=== PATIENT | female | born 1935 | race Caucasian/White ===

== ENCOUNTER 2021-11-16 05:35 | Inpatient (IN) ==
[2021-11-16] MEDS ORDERED: VANCOMYCIN INJ 1,000 MG in SODIUM CHLORIDE 0.9% 250 ML IV ONE (06:30)
[2021-11-16] MEDS ORDERED: ROPIVACAINE 0.5% 30 ML VIAL ONE (07:57)
[2021-11-16] MEDS ORDERED: LIDOCAINE 1% 5 ML VIAL ONE (07:57)
[2021-11-16] MEDS ORDERED: DEXAMETHASONE 4 MG/1 ML VIAL ONE (07:57)
[2021-11-16] MEDS ORDERED: DEXMEDETOMIDINE 200 MCG/2 ML VIAL ONE (07:58)
[2021-11-16] MEDS ORDERED: MIDAZOLAM 2 MG/2 ML VIAL ONE ×2 (07:58→08:03)
[2021-11-16] MEDS ORDERED: LIDOCAINE 2% 5 ML VIAL ONE (08:03)
[2021-11-16] MEDS ORDERED: ONDANSETRON 4 MG/2 ML VIAL ONE (08:03)
[2021-11-16] MEDS ORDERED: propofoL 200 MG/20 ML VIAL IV ONE (08:03)
[2021-11-16] MEDS ORDERED: fentaNYL 100 MCG/2 ML VIAL ONE (08:04)
[2021-11-16] MEDS ORDERED: KETAMINE 500 MG/10 ML VIAL ONE (08:04)
[2021-11-16] MEDS ORDERED: BUPIVACAINE SPINAL 0.75% 2 ML AMP SPINAL ONE (08:08)
[2021-11-16] MEDS ORDERED: buprenorphine HCL 0.3 MG/ML VIAL ONE (08:15)
[2021-11-16] MEDS: LACTATED RINGERS 1,000 ML IV SCH ×2 (08:19→10:54)
[2021-11-16] MEDS ORDERED: GLYCOPYRROLATE 0.4 MG/2 ML VIAL ONE (08:21)
[2021-11-16] MEDS ORDERED: PHENYLEPHRINE 1 MG/10 ML SYRINGE IV ONE ×2 (08:21→10:26)
[2021-11-16] MEDS ORDERED: BACITRACIN OINT 0.9 GM PACK TOP ONE (09:01)
[2021-11-16] MEDS ORDERED: PROMETHAZINE 25 MG/1 ML VIAL IM PRN (10:38)
[2021-11-16] MEDS ORDERED: LACTULOSE 20 GM/30 ML UDCUP PO PRN (10:38)
[2021-11-16] MEDS ORDERED: BISACODYL 10 MG SUPP RECTAL PRN (10:38)
[2021-11-16] MEDS ORDERED: TEMAZEPAM 7.5 MG CAPSULE PO PRN (10:38)
[2021-11-16] MEDS ORDERED: MAGNESIUM HYDROXIDE SUSP 30 ML UDCUP PO PRN (10:38)
[2021-11-16] MEDS ORDERED: diphenhydrAMINE CAP 25 MG CAPSULE PO PRN (10:38)
[2021-11-16] MEDS ORDERED: ONDANSETRON 4 MG/2 ML VIAL IV PRN (10:38)
[2021-11-16] MEDS ORDERED: CLORAZEPATE 3.75 MG TABLET PO PRN (10:43)
[2021-11-16] MEDS ORDERED: ePHEDrine 50 MG/ML VIAL IV PRN (12:14)
[2021-11-16] MEDS ORDERED: ePHEDrine 50 MG/ML VIAL ONE (12:14)
[2021-11-16] MEDS: SUCRALFATE 1 GM TABLET PO SCH ×3 (16:52→21:35)
[2021-11-16] MEDS: LEVOTHYROXINE 112 MCG TABLET PO SCH (16:52)
[2021-11-16] MEDS: LEVOTHYROXINE 125 MCG TABLET PO SCH (16:52)
[2021-11-16] MEDS: DICLOFENAC 1% GEL 100 GM TUBE TOP SCH ×2 (18:06→21:37)
[2021-11-16] MEDS: MORPHINE 2 MG/1 ML SYRINGE IV PRN (21:35)
[2021-11-16] MEDS: FONDAPARINUX 2.5 MG/0.5 ML SYRINGE SUBCUT SCH (21:35)
[2021-11-16] MEDS: DOCUSATE SODIUM 100 MG CAPSULE PO SCH (21:35)
[2021-11-16] MEDS: MULTIVITAMIN (OCUVITE) TABLET PO SCH (21:35)
[2021-11-17 05:45] LABS: Basophils % 0.2 % (0.0-0.8); Eosinophils % 0.2 % (0.00-10.9); Hematocrit 31.9 VOL% (35.7-47.0); Hemoglobin 10.7 GM/DL (12.0-16.0); Immature Granulocytes % 0.3 %; Immature Granulocytes Absolute 0.02 #; Lymphocytes # 0.7 10*3/uL (1.4-4.0); Lymphocytes % 12.5 % (21.3-54.2); Mean Corpuscular HGB Conc 33.5 GM/DL (32-36); Mean Corpuscular Volume 94.4 FL (87-102); Mean Platelet Volume 9.4 FL (9.6-12.0); Monocytes % 13.5 % (1.7-12.7); Neutrophils % 73.3 % (38.7-73.9); Platelet Count 107 T/CUMM (130-400); Red Blood Count 3.38 MC/CUMM (3.8-5.5); Red Cell Distribution Width 18.1 % (9.3-17.3); White Blood Count 5.8 T/CUMM (4-12)
[2021-11-17] MEDS: LEVOTHYROXINE 125 MCG TABLET PO SCH (05:49)
[2021-11-17 05:56] LABS: Calcium 8.7 MG/DL (8.5-10.1); Osmolality,Calculated 271.1 MOS/KG (273-304); Potassium 4.5 MMOL/L (3.5-5.1)
[2021-11-17] MEDS: SUCRALFATE 1 GM TABLET PO SCH ×4 (08:41→20:07)
[2021-11-17] MEDS: FERROUS SULFATE 325 MG TABLET PO SCH (08:42)
[2021-11-17] MEDS: hydroCHLOROthiazide 12.5 MG CAPSULE PO SCH (08:42)
[2021-11-17] MEDS: atenoloL 50 MG TABLET PO SCH (08:42)
[2021-11-17] MEDS: MAGNESIUM OXIDE 400 MG TABLET PO SCH (08:42)
[2021-11-17] MEDS: ASPIRIN EC 81 MG TABLET PO SCH (08:42)
[2021-11-17] MEDS: PANTOPRAZOLE 40 MG TABLET PO SCH (08:42)
[2021-11-17] MEDS: MULTIVITAMIN (OCUVITE) TABLET PO SCH ×2 (08:42→20:07)
[2021-11-17] MEDS: MULTIVITAMIN (CENTRUM) TABLET PO SCH (08:42)
[2021-11-17] MEDS: lisinopriL 20 MG TABLET PO SCH (08:43)
[2021-11-17] MEDS: DOCUSATE SODIUM 100 MG CAPSULE PO SCH ×2 (08:43→20:07)
[2021-11-17] MEDS: DICLOFENAC 1% GEL 100 GM TUBE TOP SCH ×4 (09:31→20:09)
[2021-11-17] MEDS ORDERED: ACETAMINOPHEN 325 MG TABLET PO PRN (10:42)
[2021-11-17] MEDS ORDERED: TUBERCULIN SKIN TEST 0.1 ML SYRINGE INTRADERM ONE (15:01)
[2021-11-17] MEDS: MORPHINE 2 MG/1 ML SYRINGE IV PRN (15:45)
[2021-11-17] MEDS: FONDAPARINUX 2.5 MG/0.5 ML SYRINGE SUBCUT SCH (20:17)
[2021-11-18] MEDS: LEVOTHYROXINE 112 MCG TABLET PO SCH ×2 (06:04→08:34)
[2021-11-18 06:05] LABS: Basophils % 0.1 % (0.0-0.8); Eosinophils % 0.1 % (0.00-10.9); Hemoglobin 10.4 GM/DL (12.0-16.0); Immature Granulocytes % 0.4 %; Immature Granulocytes Absolute 0.03 #; Lymphocytes # 0.8 10*3/uL (1.4-4.0); Lymphocytes % 10.8 % (21.3-54.2); Mean Corpuscular HGB Conc 33.5 GM/DL (32-36); Mean Corpuscular Volume 92.8 FL (87-102); Monocytes % 16.9 % (1.7-12.7); Neutrophils % 71.7 % (38.7-73.9); Platelet Count 123 T/CUMM (130-400); Red Blood Count 3.34 MC/CUMM (3.8-5.5); Red Cell Distribution Width 18.3 % (9.3-17.3); White Blood Count 7.7 T/CUMM (4-12)
[2021-11-18 06:27] LABS: Calcium 8.8 MG/DL (8.5-10.1); Osmolality,Calculated 270.4 MOS/KG (273-304); Potassium 3.2 MMOL/L (3.5-5.1)
[2021-11-18 06:31] LABS: Eosinophils 1 % (0-10); Hypochromia Slight; Lymphocytes 12 % (20-55); Microcytosis Slight; Platelet Estimate Normal; Segmented Neutrophils 73 % (50-85); Total Cells Counted 100
[2021-11-18] MEDS: lisinopriL 20 MG TABLET PO SCH (08:33)
[2021-11-18] MEDS: hydroCHLOROthiazide 12.5 MG CAPSULE PO SCH (08:34)
[2021-11-18] MEDS: MULTIVITAMIN (OCUVITE) TABLET PO SCH ×2 (08:34→21:00)
[2021-11-18] MEDS: MULTIVITAMIN (CENTRUM) TABLET PO SCH (08:34)
[2021-11-18] MEDS: MAGNESIUM OXIDE 400 MG TABLET PO SCH (08:34)
[2021-11-18] MEDS: SUCRALFATE 1 GM TABLET PO SCH ×4 (08:34→21:01)
[2021-11-18] MEDS: FERROUS SULFATE 325 MG TABLET PO SCH (08:34)
[2021-11-18] MEDS: atenoloL 50 MG TABLET PO SCH (08:34)
[2021-11-18] MEDS: ASPIRIN EC 81 MG TABLET PO SCH (08:34)
[2021-11-18] MEDS: DOCUSATE SODIUM 100 MG CAPSULE PO SCH ×2 (08:34→21:02)
[2021-11-18] MEDS: PANTOPRAZOLE 40 MG TABLET PO SCH (08:35)
[2021-11-18] MEDS: DICLOFENAC 1% GEL 100 GM TUBE TOP SCH ×4 (08:48→21:03)
[2021-11-18] MEDS ORDERED: SODIUM PHOSPHATE ENEMA 133 ML BOTTLE RECTAL PRN (09:54)
[2021-11-18] MEDS: POTASSIUM CHLORIDE 20 MEQ TABLET PO SCH ×2 (10:30→21:00)
[2021-11-18] MEDS ORDERED: SODIUM PHOSPHATE ENEMA 133 ML BOTTLE RECTAL ONE (11:00)
[2021-11-18] MEDS: FONDAPARINUX 2.5 MG/0.5 ML SYRINGE SUBCUT SCH (21:00)
[2021-11-19] MEDS: LEVOTHYROXINE 112 MCG TABLET PO SCH (06:00)
[2021-11-19] MEDS ORDERED: LEVOTHYROXINE 125 MCG TABLET PO SCH (06:00)
[2021-11-19 07:02] LABS: Calcium 8.6 MG/DL (8.5-10.1); Osmolality,Calculated 269.2 MOS/KG (273-304)
[2021-11-19] MEDS: POTASSIUM CHLORIDE 20 MEQ TABLET PO SCH (08:37)
[2021-11-19] MEDS: MULTIVITAMIN (CENTRUM) TABLET PO SCH (08:37)
[2021-11-19] MEDS: atenoloL 50 MG TABLET PO SCH (08:37)
[2021-11-19] MEDS: MAGNESIUM OXIDE 400 MG TABLET PO SCH (08:37)
[2021-11-19] MEDS: SUCRALFATE 1 GM TABLET PO SCH (08:37)
[2021-11-19] MEDS: ASPIRIN EC 81 MG TABLET PO SCH (08:37)
[2021-11-19] MEDS: MULTIVITAMIN (OCUVITE) TABLET PO SCH (08:37)
[2021-11-19] MEDS: lisinopriL 20 MG TABLET PO SCH (08:38)
[2021-11-19] MEDS: PANTOPRAZOLE 40 MG TABLET PO SCH (08:38)
[2021-11-19] MEDS: FERROUS SULFATE 325 MG TABLET PO SCH (08:38)
[2021-11-19] MEDS: DOCUSATE SODIUM 100 MG CAPSULE PO SCH (08:42)
[2021-11-19] MEDS: DICLOFENAC 1% GEL 100 GM TUBE TOP SCH (08:42)
[2021-11-19] MEDS: hydroCHLOROthiazide 12.5 MG CAPSULE PO SCH (08:42)
[2021-11-19 11:26] VITALS: BP 134/54
[2021-11-20] MEDS ORDERED: POTASSIUM CHLORIDE 10 MEQ TABLET PO SCH (09:00)
== END 2021-11-19 11:24 | disposition swing bed (61) | DRG 470 ==
LOC: N.OR 05:35 → N.SDSINP 05:39 → N.3E 15:17
PROVIDERS: ADMIT Orthopaedic Surgery; ATTEND Orthopaedic Surgery